=== PATIENT | female | born 1950 | race Caucasian/White ===

== ENCOUNTER 2021-10-16 08:11 | Day surgery (SDC) | payer MEDICARE ==
[~2021-10-16 08:11] MED LIST: Midazolam 1 MG/ML 2 ML SDV ONE; Propofol 200 MG/20 ML SDV ONE; fentaNYL 100 MCG/2 ML SDV ONE
[2021-10-16] MEDS ORDERED: Sodium Chloride 0.9% 1,000 ML IV SCH (08:45)
== END 2021-10-16 11:17 | disposition home or self-care (01) ==
LOC: JP.SDS 08:11
PROVIDERS: ATTEND Surgery
DX: Z12.11 Encounter for screening for malignant neoplasm of colon (principal); D12.2 Benign neoplasm of ascending colon; K57.30 Diverticulosis of large intestine without perforation or abscess without bleeding; Z01.812 Encounter for preprocedural laboratory examination; Z20.822 Contact with and (suspected) exposure to COVID-19
CPT/HCPCS: 88305; J2250; J2704; J3010; J7030; U0002